=== PATIENT | female | born 1995 | race Caucasian/White ===

== ENCOUNTER 2017-12-17 19:35 | Emergency (ER) | payer OTHER ==
[2017-12-18] MEDS ORDERED: Ketorolac INJ* 30 MG/ML 1 ML VIAL IV PUSH ONE (00:52)
[2017-12-18] MEDS ORDERED: Metoclopramide IV* 5 MG/ML 2 ML VIAL IV SLOW PU ONE (00:52)
[2017-12-18] MEDS ORDERED: NS 0.9% 1000 ML* 1,000 ML IV ONE (00:52)
--- NOTE | 2017-12-18 00:54 | ED ---
Headache - HPI Summary HPI Summary: 22-year-old female presents with intermittent headache for the past 3week. She states she has a history of migraines and that this is similar to her previous migraines. She admits to photophobia and phonophobia. She states she has some neck stiffness and feels like a muscle spasm. She denies any fevers. She states she had a cold a month ago. She denies any sinus congestion. She states her migraines located in the front of her head. She denies any nausea or vomiting. She has a family history of migraines. She also has a history of vertigo. She has not seen anyone for this. Vertigo has been going on for a year. States it is worse with positional changes. She has tried Aleve for her headache without relief. - History Of Current Complaint Chief Complaint: EDHeadache Stated Complaint: MIGRAINE Time Seen by Provider: 12/18/17 00:31 Hx Last Menstrual Period: 05/30/15 - Allergies/Home Medications Allergies/Adverse Reactions: Allergies Allergy/AdvReac Type Severity Reaction Status Date / Time No Known Allergies Allergy Verified 12/17/17 19:42 PMH/Surg Hx/FS Hx/Imm Hx Endocrine/Hematology History: Denies: Hx Anticoagulant Therapy Cardiovascular History: Denies: Hx Hypertension Infectious Disease History: No Infectious Disease History: Denies: Traveled Outside the [place] in Last 30 Days - Family History Known Family History: Positive: Other - migraines - Social History Alcohol Use: None Substance Use Type: Reports: None Smoking Status (MU): Never Smoked Tobacco Review of Systems Negative: Fever Negative: Chest Pain Negative: Shortness Of Breath Neurological: Other - vertigo Positive: Headache All Other Systems Reviewed And Are Negative: Yes Physical Exam Triage Information Reviewed: Yes Vital Signs On Initial Exam: Initial Vitals Temp Pulse Resp BP Pulse Ox 98.3 F 87 16 129/71 100 12/17/17 19:35 12/17/17 19:35 12/17/17 19:35 12/17/17 19:35 12/17/17 19:35 Vital Signs Reviewed: Yes Appearance: Positive: Well-Appearing Skin: Positive: Warm, Dry Head/Face: Positive: Normal Head/Face Inspection Eyes: Positive: Normal, EOMI, NICOLAS, Conjunctiva Clear ENT: Positive: Normal ENT inspection, Pharynx normal, TMs normal Respiratory/Lung Sounds: Positive: Clear to Auscultation, Breath Sounds Present Cardiovascular: Positive: Normal, RRR Abdomen Description: Positive: Nontender, Soft Bowel Sounds: Positive: Present Musculoskeletal: Positive: Normal Neurological: Positive: Sensory/Motor Intact, Alert, Oriented to Person Place, Time, CN Intact II-III, [place] Evans Test - to right pos Psychiatric: Positive: Normal - Zhane Coma Scale Best Eye Response: 4 - Spontaneous Best Motor Response: 6 - Obeys Commands Best Verbal Response: 5 - Oriented Coma Scale Total: 15 Diagnostics - Vital Signs Vital Signs Temp Pulse Resp BP Pulse Ox 12/17/17 21:50 97.8 F 61 16 140/55 100 12/17/17 19:35 98.3 F 87 16 129/71 100 - Laboratory Result Diagrams: 12/18/17 01:32 12/18/17 01:32 Lab Statement: Any lab studies that have been ordered have been reviewed, and results considered in the medical decision making process. Re-Evaluation - Re-Evaluation First Eval Re-Evaluation Time: 01:40 Change: Improved Comment: headache is better but patient states is feeling very anxious and would like to go home, discussed do not have lab work back but do not suspect anything life threatening, discussed will try flexeril for muscle spasms in neck Headache Course/Dx - Course Course Of Treatment: 22-year-old female presents with intermittent headache for the past 3week. She states she has a history of migraines and that this is similar to her previous migraines. She admits to photophobia and phonophobia. She states she has some neck stiffness and feels like a muscle spasm. She denies any fevers. She states she had a cold a month ago. She denies any sinus congestion. She states her migraines located in the front of her head. She has a family history of migraines. She also has a history of vertigo. She has not seen anyone for this. Vertigo has been going on for a year. States it is worse with positional changes. She has tried Aleve for her headache without relief. normal neuro exam. pos [id number] to right. will give referral to PT about vertigo. will give referral to neuro to follow up about migraines. patient did not stay for labs to be resulted as became very anxious and wanted to leave. did not want any medication further. will try flexeril for muscle spasms. patient understand and agrees with plan. - Diagnoses Differential Diagnosis/HQI/PQRI: Migraine, Tension Headache, Viral Syndrome Provider Diagnoses: Headache Discharge - Discharge Plan Condition: Good Disposition: HOME Prescriptions: Cyclobenzaprine TAB* [Flexeril 10 MG TAB*] 10 mg PO TID PRN #15 tab PRN Reason: Pain Patient Education Materials: Migraine Headache (ED) Referrals: Non Staff,Doctor [Primary Care Provider] - Alessandro Parra MD [Medical Doctor] - [facility] [place] Physical therapy,PT [Medical Doctor] - Additional Instructions: Take flexeril up to three times a day for neck pain Take excredin if headache returns, can take tyenlol every 6 hours Follow up with PT about vertigo Follow up with neurology Return to ED if develop any new or worsening symptoms
[2017-12-18 01:39] LABS: ABS Basophils 0.1 10^3/ul (0-0.2); ABS Eosinophils 0.2 10^3/ul (0-0.6); ABS Monocytes 0.6 10^3/ul (0-0.8); ABS Neutrophils 4.7 10^3/ul (1.5-7.7); ABS Nucleated RBC 0 10^3/ul; Eosinophil % 2.4 % (0-6); Hematocrit 39 % (35-47); Hemoglobin 13.2 g/dl (12.0-16.0); Lymphocyte % 35.3 % (25-47); Mean Corpuscular HGB Conc 34 g/dl (31-36); Mean Corpuscular Hemoglobin 30 pg (27-31); Mean Corpuscular Volume 89 fL (80-97); Mean Platelet Volume 9 um3 (7.4-10.4); Nucleated Red Blood Cells % 0; Platelet Count 211 10^3/ul (150-450); Red Blood Count 4.35 10^6/ul (4.0-5.4); Red Cell Distribution Width 13 % (10.5-15); White Blood Count 8.6 10^3/ul (3.5-10.8)
[2017-12-18 01:54] VITALS: BP 106/56
== END 2017-12-18 01:55 | disposition home or self-care (01) ==
LOC: ED 19:35
DX: R51 Headache (principal)
CPT/HCPCS: 36415; 80053; 83735; 84702; 85025; 96374; 96375; 99283; J1885; J2765